=== PATIENT | male | born 1955 | race Caucasian/White ===

== ENCOUNTER → 2016-07-16 | Outpatient (CLI) | payer BC ==
--- NOTE | ~2016-07-16 | CT2 ---
[facility] A Service of [facility] & [facility] RADIOLOGY TEXT RESULTS PATIENT: SHY PELAEZ LOCATION: [facility] : 55 UNIT #: [id number] AGE: [address]: Billy Linares MD SEX: M ORDER DR: [id number] [facility] [address] [place], [place] [address] [id number] O MR#: [id number] Acc #: [id number] NAME: SHY PELAEZ : 1955 SEX: M STUDY DATE/TIME: 07/16/2016 12:15 UNIT: [facility] ROOM: STUDY DESCRIPTION: CT Abd and Pelv W Cont Attending Physician: Billy Linares M.D. Referring Physician: Billy Linares M.D. Ordering Physician: Billy Linares M.D. Primary Care Physician: Billy Linares M.D. MEDICAL IMAGING REPORT This report is preliminary unless electronic signature is present EXAM Abdomen and pelvis CT with contrast. HISTORY Lower abdominal pain, severe in nature, with nausea, diarrhea over the past week. TECHNIQUE Axial images were obtained with oral and intravenous contrast. 100 mL of Isovue was used. This CT exam was performed with one or more of the following radiation dose reduction techniques: automatic exposure control, adjustment of mA and/or kV according to patient size, and iterative reconstruction. FINDINGS Fibrotic changes are seen at both lung bases. There is a small nodule in the right lung base that was present in 2012 has not changed. No further followup is needed. In the abdomen the liver, spleen and pancreas have a normal appearance. There are multiple parapelvic cyst in the left kidney there is a small left renal calcification measuring 2 mm in diameter, consist with a nonobstructing kidney stone. No adrenal masses are seen. There is no evidence of retroperitoneal adenopathy or ascites. There are no distended bowel loops. Diverticulosis is seen without evidence of diverticulitis. No mucosal thickening is seen in the colon. There is no evidence of pelvic adenopathy, mass or fluid collection. IMPRESSION Small nonobstructing left kidney stone with multiple left parapelvic cysts. No acute or inflammatory changes seen in the abdomen or pelvis. No evidence of colitis. Dictated by... [facility] A Service of [facility] & [facility] RADIOLOGY TEXT RESULTS PATIENT: SHY PELAEZ LOCATION: [facility] : 55 UNIT #: [id number] AGE: [address]: Billy Linares MD SEX: M ORDER DR: Willie Carvajal M.D. THIS IS AN ELECTRONICALLY VERIFIED REPORT Willie Carvajal M.D. at 07/19/2016 11:02 AM BROCK/domingo TD: 07/18/2016 11:16 JOB #: [id number] MEDICAL IMAGING REPORT Page 1 of 1 COPY
[2016-07-16 11:36] LABS: POC - CREATININE 1.12 mg/dL (0.64-1.27); POC - GFR >60.0 mL/min (>60)
== END | disposition home or self-care (01) ==
LOC: CCAT 11:04
PROVIDERS: Internal Medicine
DX: R10.30 Lower abdominal pain, unspecified (principal); R19.7 Diarrhea, unspecified; Z87.19 Personal history of other diseases of the digestive system; N20.0 Calculus of kidney
CPT/HCPCS: 74177; 82565; Q9967